=== PATIENT | male | born 1955 | race Caucasian/White ===

== ENCOUNTER 2016-12-23 09:11 | Day surgery (SDC) | payer OTHER ==
[~2016-12-23] VITALS: Ht 188 cm; Wt 133.2 kg
[~2016-12-23 09:11] MED LIST: ALBU18HF INH; AMLO5TAB2 PO; ATEN100T PO; DOXA4TAB2 PO; HYDR25TA4 PO; MOEX15TA2 PO; SALM50DI IH
[2016-12-23 09:18] VITALS: BP 168/75; RESP 18; O2SAT 99
[2016-12-23] MEDS ORDERED: 0.9% Sodium Chloride 1,000 ML IV ONE (09:19)
--- NOTE | 2016-12-23 09:19 | ED.REPORT ---
HPI-Abd Pain M 40 and Over Date of Service December 23, 2016 ED Provider: Dr. Parth Cornell MD A 61 year old male with a history of hypertension and asthma presents to the ED with a foreign body present in the esophagus that he ingested last night at 1900. Patient reports that he was eating a piece of steak when it lodged in his throat and he began to experience dysphagia, esophageal discomfort and several mild episodes of emesis. He has been unable to swallow any other substances since ingesting the steak. He denies any difficulty breathing or pain. Patient denies any previous ED visits for dysphagia. Nursing Notes Stated Complaint: MEAT STUCK IN THROAT Chief Complaint: ENT & Mouth Nursing Notes Reviewed: Yes Allergies: Coded Allergies: No Known Allergies (Unverified , 07/04/16) Scheduled Amlodipine (Amlodipine) 5 Mg Tablet 5 MG PO DAILY Atenolol (Atenolol) 100 Mg Tablet 100 MG PO DAILY Doxazosin (Cardura) 4 Mg Tablet 4 MG PO HS Hydrochlorothiazide (Hydrochlorothiazide) 25 Mg Tablet 25 MG PO DAILY Moexipril (Moexipril) 15 Mg Tablet 30 MG PO DAILY Salmeterol Xinafoate (Serevent Diskus) 50 Mcg/Puff Inhaler 1,400 MCG IH BID Scheduled PRN Albuterol Sulfate (Ventolin HFA Inhaler) 200 Puff/18 Gm Inhaler 2 PUFF INH Q4 PRN PRN For Wheezing General Time Seen by MD: 09:19 Chief Complaint Other (Dsyphagia) Hx Obtained From: Patient Arrived By: Walk-in Sudden in Onset?: Yes Onset Occurred: 13 - 16 hours ago Context of Onset: Eating Symptom Duration: Since onset Progression since Onset: Unchanged Associated with: Reports: Vomiting, Denies: Shortness of breath Pertinent Negative: Pt denies other symptoms Recent Healthcare: No recent doctor visit, No recent hospitalization Risk Factors )( AAA Risk Stratification Risk factors reviewed Past Medical History Past Medical History Hypertension Asthma Past Surgical History Right shoulder arthroscopy with rotator cuff repair Smoking History Never Smoker Social History Other Social History: Good social support, , Local resident Ambulatory Status Independent Review of Systems Dysphagia Respiratory: Denies: Dyspnea on exertion, Shortness of breath GI: Reports: Vomiting Complete sys rev & neg: except as marked. Ears / Nose / Throat: Reports: Throat pain (discomfort) Neurologic: Denies: Change LOC Physical Exam Initial Vital Signs Vital Signs (First) Date Time Temp Pulse Resp B/P Pulse Ox O2 Delivery O2 Flow Rate FiO2 12/23/16 09:18 36.5 66 18 168/75 99 Room Air Initial VS: Reviewed Head / Eyes: Atraumatic, Normocephalic, PERRL Neck: Supple, Non-tender, Full range of motion Extremities: Vascular intact, Neuro intact, No swelling, No tenderness Skin: Warm, Dry, No cyanosis Neurologic: Alert, Oriented, Nonfocal Psychiatric: Mood/affect normal, Behavior normal, Normal thought content General/Constitutional: Awake, Alert Appearance / Presentation: Positive: Uncomfortable (Pt is actively spitting into a sue) Respiratory / Chest: Atraumatic, Breath sounds NL, Breath sounds = bilat, No respiratory distress Cardiovascular: Heart rate NL, Regular rhythm, Heart sounds NL Abdomen: Atraumatic, Soft, Non-tender Back: Atraumatic, Inspection NL Interpretation & Diagnostics Lab Results Interpretation Result Diagram: 12/23/16 0930 12/23/16 0930 Test 12/23/16 09:30 White Blood Count 8.4th/mm3 (3.8-10.1) Red Blood Count 5.49mil/mm3 (4.40-5.80) Hemoglobin 16.3g/dL (13.8-17.2) Hematocrit 46.8% (41.0-50.0) Mean Corpuscular Volume 85.2fL (81-100) Mean Corpuscular Hemoglobin 29.7pg (27.0-35.0) Mean Corpuscular Hemoglobin Concent 34.8% (32.0-37.0) Red Cell Distribution Width 13.2% (12.3-15.4) Platelet Count 185bil/L (150-400) Neutrophils (%) (Auto) 81.4% (40-74) Lymphocytes (%) (Auto) 9.7% (14-46) Monocytes (%) (Auto) 5.8% (4-12) Eosinophils (%) (Auto) 2.7% (0-5) Basophils (%) (Auto) 0.2% (0-3) Sodium Level 142mEq/L (134-144) Potassium Level 4.1mEq/L (3.5-5.2) Chloride Level 104mEq/L (97-108) Carbon Dioxide Level 24mmol/L (18-29) Blood Urea Nitrogen 20mg/dL (8-27) Creatinine 0.89mg/dL (0.76-1.27) Estimat Glomerular Filtration Rate 92mL/min (>59) Glucose Level 118mg/dL (60-99) Calcium Level 9.7mg/dL (8.5-10.1) Total Bilirubin 1.5mg/dL (0.0-1.2) Aspartate Amino Transf (AST/SGOT) 24U/L (0-50) Alanine Aminotransferase (ALT/SGPT) 28U/L (0-44) Alkaline Phosphatase 99U/L (25-160) Total Protein 7.8g/dL (6.4-8.4) Albumin 4.4g/dL (3.4-5.0) Hold Grace Top Tube Received (Received) Re-Eval/Medical Decision Time of Eval: 09:42 Patient Status: Condition improved Re-Evaluation/Progress Note: Discomfort has improved and he agrees to meet with GI. Time of Eval: 10:10 Patient Status: Condition improved Re-Evaluation/Progress Note: Patient is rechecked and he is informed of the plan to wait for GI to perform and endoscopy. All of his questions about the procedure are addressed. Time of Eval: 11:51 Re-Evaluation/Progress Note: Pt is accompanied by Dr. Bedolla to receive an endoscopy. Consultation : Referral / Consult Name: Hai Bedolla MD Call Returned at: 09:38 [employer]: Will see patient, Agrees with eval, Agrees with plan Note: GI Counseled Regarding: Diagnosis, Lab results, Need for follow-up, When/why to return to ED Discharge & Departure Primary Impression: Esophageal foreign body Encounter type: initial encounter Qualified Code: T18.108A - Unspecified foreign body in esophagus causing other injury, initial encounter Disposition: ADMITTED TO HOSPITAL Receiving Hospital: Went to endoscopy Vital Signs - All Vital Signs Date Time Temp Pulse Resp B/P Pulse Ox O2 Delivery O2 Flow Rate FiO2 12/23/16 09:18 36.5 66 18 168/75 99 Room Air )( All Prior VS Reviewed: Yes Condition: Improved Referrals: Lucho Romo MD (PCP) Scribe Attestation Portions of this note were transcribed by Abeba Davison. IDr. Cornell personally performed the history, physical exam and medical decision-making; I reviewed and confirmed the accuracy of the information in the transcribed note. Signed by: Theodore Lara, 12/23/16 1200. copies to: Lucho Romo MD, Kirk H MD December 23, 2016 09:19 ABEBA DAVISON December 23, 2016 09:28
[2016-12-23] MEDS ORDERED: Ondansetron 2 mg/mL 2 mL Inj IVPUSH PRN ×2 (09:20→12:50)
[2016-12-23] MEDS ORDERED: Glucagon 1 mg/mL Inj IV ONE (09:20)
[2016-12-23 10:01] LABS: BASOPHILS % (AUTO) 0.2 % (0-3); EOSINOPHILS % (AUTO) 2.7 % (0-5); MONOCYTES % (AUTO) 5.8 % (4-12); Mean Corpuscular Hemoglobin 29.7 pg (27.0-35.0); Mean Corpuscular Volume 85.2 fL (81-100); NEUTROPHILS % (AUTO) 81.4 % (40-74); Platelet Count 185 bil/L (150-400)
[2016-12-23] MEDS ORDERED: Propofol 10,000 mCg/mL 20 mL Inj ONE (10:07)
[2016-12-23] MEDS ORDERED: fentaNYL-PF 50 mCg/mL 2 mL Inj ONE (10:07)
[2016-12-23 11:49] VITALS: BP 168/75; PULSE 66; RESP 18; O2SAT 99
[2016-12-23 11:50] VITALS: BP 165/95; PULSE 66; RESP 16; O2SAT 100
--- NOTE | 2016-12-23 12:00 | CONS ---
[address] [address] CONSULTATION REPORT PATIENT: JYOTI MORRIS : 1955 MR#: [id number] ADMIT: 12/23/2016 JOB ID: [id number] DATE OF SERVICE: 12/23/2016 GASTROENTEROLOGY CONSULTATION: REASON FOR CONSULTATION: Food impaction. HISTORY OF PRESENT ILLNESS: A 61-year-old male with history of hypertension and asthma presents to the emergency department for food impaction. The patient was eating steak at 6 p.m. last night and felt like food got stuck in the throat. The patient never had an EGD but had a colonoscopy three years ago which was normal. I have no records. The patient denies family history of colon cancer, inflammatory bowel disease or celiac disease. The patient denies rectal bleeding, positive for nausea and vomiting, no chest pain, shortness of breath, palpitations, rashes or joint pain. PAST MEDICAL HISTORY: As stated above. PAST SURGERIES: Right shoulder arthroscopy with rotator cuff repair. ALLERGIES: No known drug allergies. MEDICATIONS AT HOME: 1. Amlodipine. 2. Atenolol. 3. Cardura. 4. Hydrochlorothiazide. 5. Moexipril. 6. Serevent. SOCIAL HISTORY: Never smoked. No IV drug use. No alcohol. FAMILY HISTORY: Negative for colon cancer. REVIEW OF SYSTEMS: The patient denies headache, blurred vision. Positive for nausea and vomiting. No chest pain, shortness of breath, palpitations, rashes or joint pain. PHYSICAL EXAMINATION: Vitals on presentation: Temperature 36.5, pulse 66, blood pressure 168/75, respiratory rate 18, satting 99% on room air. General: Head: No scars. Eyes intact. Throat supple. Lungs: Clear to auscultation bilaterally. Cardiovascular: Regular rhythm and rate. Abdomen: Soft, nondistended, nontender. Normal bowel sounds. Extremities: No cyanosis, clubbing or edema. ASSESSMENT AND PLAN: A 61-year-old male with history of asthma and hypertension presents here with food impaction was steak eaten since 6 p.m. RECOMMENDATIONS: 1. N.p.o. 2. EGD with anesthesia today for removal of food impaction. MTDD
[2016-12-23] MEDS ORDERED: Lactated Ringer's 1,000 ML IV ONE ×2 (12:13)
[2016-12-23 12:42] VITALS: BP 128/73; PULSE 78; RESP 14; O2SAT 97
[2016-12-23] MEDS ORDERED: Lactated Ringer's 1,000 ML IV SCH (12:46)
--- NOTE | 2016-12-23 12:46 | PCM.HPANE ---
Patient Data Surgeon Admitting Provider: Attending Provider:Hai Bedolla MD Primary Care Physician:Lucho Romo MD Other Provider: Reason for Visit Meat Stuck In Throat Ht/WT & BMI Height (Feet): 6 Height (Inches): 2.00 Weight (Kilograms): 133.180 Body Mass Index 37.00 Allergies Coded Allergies: No Known Allergies (Unverified , 07/04/16) Past Anesthesia History Anesthesia History: Denies:: Abnormal Airway, Anesthesia Reactions, Difficult Intubation, Fam Anesthesia Reaction Diabetes History Hx Diabetes?: No MRSA MRSA: No Medications Reported Medications Albuterol Sulfate (Ventolin HFA Inhaler)200 Puff/18 Gm Inhaler2 Puff INH Q4 PRN For Wheezing #1 INHALER Ref 0 07/05/16 Salmeterol Xinafoate (Serevent Diskus)50 Mcg/Puff Inhaler1,400 Mcg IH BID 07/05/16 Moexipril 15 Mg [id number] Mg PO DAILY 07/05/16 Hydrochlorothiazide 25 Mg [id number] Mg PO DAILY 30 Days Ref 0 07/05/16 Doxazosin (Cardura)4 Mg Tablet4 Mg PO HS Ref 0 07/05/16 Atenolol 100 Mg [id number] Mg PO DAILY Ref 0 07/05/16 Amlodipine 5 Mg Tablet5 Mg PO DAILY Ref 0 07/05/16 History History of ENT Problems?: No HEENT History: Positive for:: TMJ (grinds teeth, no nightguard) Denies:: Abnormal Airway Cataracts Difficult Intubation Dysphagia Hearing Problem Sinus Problem Denture Type: None Teeth Condition: Within Normal Limits Hx of Heart Problems?: Yes Cardiovascular History: Positive for:: Hypertension Denies:: AICD Abdominal Aortic Aneurism Atrial Fibrillation Chest Pain Congestive Heart Failure Edema Heart Murmur Irregular Heartbeat Pacemaker Valvular Heart Disease Hx of Respiratory Problem?: Yes Respiratory History: Positive for:: Asthma Pneumonia (remote hx) Denies:: COPD Cough Hemoptysis Oxygen Administration Tuberculosis Use of C-PAP Machine Hx Neurologic Problems?: No Neurological History: Denies:: CVA Dementia Dizziness Headaches Multiple Sclerosis Parkinson's Disease Seizures Hx of GI Problems?: No Hx of Problems?: No Genitourinary History: Denies:: Kidney Stones Urinary Tract Infection Male Hx: Denies:: Prostate Problems Skin History: Denies:: History Skin Disorders? Pressure Ulcers Hx Musculoskeletal Problems?: Yes Musculoskeletal History: Positive for:: Musculoskeletal Trauma (right shoulder current admission problem) Denies:: Fibromyalgia Joint Replacement Systemic Lupus Hx of Psycho/Social Problems?: No Psycho Social History: Denies:: Anxiety Hx Depression Hx Surgeries?: Yes (tonsil, finger, shoulder, knee) Hx Any Other Health Problems?: Yes Other History: Denies:: Cancer Thyroid Disease History Blood Transfusions: Denies:: Blood Transfusions Hx Diabetes: No Hx Alcohol Use: NoHx Substance Use: No Smoking Status: Never Smoker Have You Smoked inLast 12 mo: No Stop/Bang Treated for Sleep Apnea?: No Do You Have a CPAP Machine?: No JULIA Risk Assessment: Low Risk, <3 Yes Risk Assessment Category Category 1A: Patient has history of documented sleep apnea, and HAS NOT received any narcotic, sedative or anesthesia administration during this stay. Category 1B: Patient has history of documented sleep apnea, and HAS received any narcotic , sedative or anesthesia administration during this stay Category 2: Patient has SUSPECTED Obstructive Sleep Apnea, and HAS received any narcotic , sedative or anesthesia administration during this stay. Category 3: Patient has SUSPECTED Obstructive Sleep Apnea and HAS NOT received narcotic, sedative or anesthesia administration during this stay. Category 4: Outpatient in Procedural Areas with known sleep apnea or who screen positive for High Risk via the STOP/BANG questionnaire. Exam Exam Vital Signs Vital Signs Date Time Temp Pulse Resp B/P Pulse Ox O2 Delivery O2 Flow Rate FiO2 12/23/16 11:50 66 16 165/95 100 Room Air 12/23/16 11:49 36.5 66 18 168/75 99 Room Air 12/23/16 09:18 36.5 66 18 168/75 99 Room Air General Appearance: Alert, Oriented X3, Cooperative, No Acute Distress HEENT/AIRWAY: MP 2 Lungs: Clear to Auscultation, Normal Air Movement Heart: Exam Unremarkable, Regular Rate/Rhythm, No Murmurs/Rubs/Gallops Meds/Labs/Diagnostics Admission Meds Current Medications Sodium Chloride (Normal Saline) 1,000 ml @ 0 mls/hr Q0M ONCE IV Last administered on 12/23/16 09:40; Start 12/23/16 at 09:19; Stop 12/23/16 at 09:21 ; Status DC Glucagon 1 mg 1 mg ONCE ONCE IV Last administered on 12/23/16 09:40; Start at 09:20; Stop 12/23/16 at 09:21; Status DC Lactated Ringer's 1,000 ml @ STK-MED ONCE IV Last administered on 12:13; Start 12/23/16 at 12:13; Stop 12/23/16 at 12:14; Status Cancel Lactated Ringer's (Lr) 1,000 ml @ STK-MED ONCE IV Last administered on 12/23 12:38; Start 12/23/16 at 12:13; Stop 12/23/16 at 12:38; Status DC Labs Test 12/23/16 09:30 White Blood Count 8.4th/mm3 (3.8-10.1) Red Blood Count 5.49mil/mm3 (4.40-5.80) Hemoglobin 16.3g/dL (13.8-17.2) Hematocrit 46.8% (41.0-50.0) Mean Corpuscular Volume 85.2fL (81-100) Mean Corpuscular Hemoglobin 29.7pg (27.0-35.0) Mean Corpuscular Hemoglobin Concent 34.8% (32.0-37.0) Red Cell Distribution Width 13.2% (12.3-15.4) Platelet Count 185bil/L (150-400) Neutrophils (%) (Auto) 81.4% (40-74) Lymphocytes (%) (Auto) 9.7% (14-46) Monocytes (%) (Auto) 5.8% (4-12) Eosinophils (%) (Auto) 2.7% (0-5) Basophils (%) (Auto) 0.2% (0-3) Sodium Level 142mEq/L (134-144) Potassium Level 4.1mEq/L (3.5-5.2) Chloride Level 104mEq/L (97-108) Carbon Dioxide Level 24mmol/L (18-29) Blood Urea Nitrogen 20mg/dL (8-27) Creatinine 0.89mg/dL (0.76-1.27) Estimat Glomerular Filtration Rate 92mL/min (>59) Glucose Level 118mg/dL (60-99) Calcium Level 9.7mg/dL (8.5-10.1) Total Bilirubin 1.5mg/dL (0.0-1.2) Aspartate Amino Transf (AST/SGOT) 24U/L (0-50) Alanine Aminotransferase (ALT/SGPT) 28U/L (0-44) Alkaline Phosphatase 99U/L (25-160) Total Protein 7.8g/dL (6.4-8.4) Albumin 4.4g/dL (3.4-5.0) Hold Grace Top Tube Received (Received) Plan Impression Patient chart reviewed, patient interviewed and anesthestic plan with risks, benefits, and alternatives discussed, and informed consent obtained. ASA Physical Status: ASA3 Severe Disease Anesthetic Plan: GA, MAC Bene/Risks/Altern/Consents: Yes HP Complete Prior to Induction: Yes Other try mac possible GA Kei Lan MD December 23, 2016 12:46
--- NOTE | 2016-12-23 12:47 | PCM.ANEP1 ---
Post Anesthesia PACU Phase 1 Assessment Vital Signs Vital Signs Date Time Temp Pulse Resp B/P Pulse Ox O2 Delivery O2 Flow Rate FiO2 12/23/16 11:50 66 16 165/95 100 Room Air 12/23/16 11:49 36.5 66 18 168/75 99 Room Air 12/23/16 09:18 36.5 66 18 168/75 99 Room Air Anesthetic Administered: MAC Level of Alertness: Awake, talking RODRIGUEZ's with Equal Strength: Yes Pain: No Nausea or Vomiting: No CV Function & Hydration Stable: No Airway Device: Oxygen Delivery: Nasal Cannula Lungs: Clear to Auscultation, Normal Air Movement PACU Phase 2 Assessment Complications: No Follow up Care: No Patient Instructions Provided: N/A Kei Lan MD December 23, 2016 12:47
[2016-12-23] MEDS ORDERED: MetoCLOpramide 5 mg/mL 2 mL Inj IVPUSH PRN (12:50)
[2016-12-23 12:52] VITALS: BP 122/67; PULSE 70; RESP 16; O2SAT 96
[2016-12-23 13:01] VITALS: BP 152/84; PULSE 76; RESP 16; O2SAT 97
--- NOTE | 2016-12-23 15:36 | ENDO ---
[address] [address] ENDOSCOPY PROCEDURE PATIENT: JYOTI MORRIS : 1955 MR#: [id number] ADMIT: 12/23/2016 JOB ID: [id number] DATE OF SERVICE: 12/23/2016 TYPE OF OPERATION: Esophagogastroduodenoscopy with biopsy and removal of food impaction. PREOPERATIVE DIAGNOSIS: Food impaction. POSTOPERATIVE DIAGNOSES: 1. Steak seen at distal esophagus which was removed endoscopically and pushed into the stomach. 2. Concentric rings seen throughout the entire esophagus concerning for eosinophilic esophagitis, status post biopsy. 3. Distal Schatzki's ring, status post biopsy. 4. Distal esophageal ulcer, clean based, nonbleeding, 5 mm in diameter. ANESTHESIA: Monitored anesthesia care. COMPLICATIONS: None. BLOOD LOSS: Minimal. DESCRIPTION OF PROCEDURE: After risks and benefits explained to patient, informed consent was obtained. After anesthesia administered, upper endoscope was inserted in the mouth, intubating the esophagus, stomach, second portion of duodenum. Mucosa carefully examined. After procedure done, scope withdrawn, procedure terminated. FINDINGS: Upon inspection of the esophagus, there were concentric rings that were seen throughout the entire esophagus. There was also a large amount of steak that was seen at the distal esophagus starting at about 38 cm from the incisors. There were several utilities such as alligator forceps and Hernandez Net. Steak was then removed, piecemeal fashion, during the procedure use an overtube. Afterwards, the steak was then pushed into the stomach with ease. There was also esophageal ulcer, distal 5 mm, clean based, nonbleeding, and a Schatzki's ring that was seen. Biopsies taken mid and distal esophagus. Upon entering the stomach, stomach was normal without masses, ulcers, or lesions. Retroflexion was normal. Duodenal bulb, first and second portion were normal. IMPRESSIONS: 1. Food impaction with steak seen at 38 cm from incisors. Removed via overtube with alligator forceps, Hernandez Net, and eventually pushed into the stomach. 2. Concentric rings throughout the entire esophagus concerning for eosinophilic esophagitis, status post biopsy in distal esophagus. 3. Schatzki's ring. 4. Distal esophageal ulcer, 5 mm, clean based, nonbleeding. RECOMMENDATIONS: 1. Chew food thoroughly. 2. Await biopsy results. 3. Carafate 1 g by mouth four times a day. 4. Protonix 40 mg by mouth twice a day.
--- NOTE | 2016-12-27 16:10 | PATH ---
SURGICAL PATHOLOGY Attending Physician:Hai Bedolla MD CASE STATUS: Signed Out PATIENT NAME: JYOTI MORRIS PID: [id number] : 1955 DATE COLLECTED:12/23/2016 00:00 SPECIMEN: 1: Esophagus, Biopsy 2: Esophagus, Biopsy CLINICAL HISTORY: 1. Mid Esophagus Bxs 2. Distal Esophagus Bxs FINAL DIAGNOSIS: 1. Mid Esophagus Biopsies: Squamous epithelium with increased intraepithelial eosinophils (up to 14 per high power field). Please see comment. Negative for dysplasia and malignancy. 2. Distal Esophagus Biopsies: Squamous epithelium with increased intraepithelial eosinophils (up to 10 per high power field). Please see comment. Detached fragments of columnar mucosa with no diagnostic abnormality; negative for intestinal metaplasia. Negative for dysplasia and malignancy. Comment: 1. The differential diagnosis includes drug reaction, gastroesophageal reflux, and food allergies. There is an insufficient number of intraepithelial eosinophils for a diagnosis of eosinophilic esophagitis. 2. The differential diagnosis includes drug reaction, gastroesophageal reflux, and food allergies. There are insufficient numbers of intraepithelial eosinophils for a diagnosis of eosinophilic esophagitis. ICD10: K20.9 GROSS DESCRIPTION: The specimens are received in formalin, labeled with the patient's name, and sublabeled as the following: (1) mid esophagus bxs; (2) distal esophagus bxs. (1) The specimen consists of multiple fragments of elmore-white glistening translucent tissue (1.0 x 0.3 x 0.1 cm in aggregate). Section code: (1A) tissue. Specimen entirely submitted. (2) The specimen consists of a fragment of elmore-white glistening translucent tissue (0.5 x 0.3 x 0.1 cm). Section code: (2A) tissue. Specimen entirely submitted. 12/24/16 ICD-9 CODES: CPT CODES: 1: 94290 2: 19213 Electronically Signed Out Marjorie June MD [facility] Pathology [facility] [address], [place] [address] Technical component performed at [facility], [address], [place], [address]
== END 2016-12-23 23:59 | disposition home or self-care (01) ==
LOC: SED 09:11 → END 10:06
PROVIDERS: ATTEND Internal Medicine Gastroenterology
DX: T18.128A Food in esophagus causing other injury, initial encounter (principal); K22.2 Esophageal obstruction; K22.10 Ulcer of esophagus without bleeding; Y92.9 Unspecified place or not applicable; Y93.89 Activity, other specified; R13.10 Dysphagia, unspecified; I10 Essential (primary) hypertension; J45.909 Unspecified asthma, uncomplicated; Z79.51 Long term (current) use of inhaled steroids
CPT/HCPCS: 36415; 43239; 43247; 80053; 85025; 96360; 99285; J1610; J2250; J3010; J7030; J7120